=== PATIENT | female | born 1955 | race Caucasian/White ===

== ENCOUNTER 2024-05-14 06:23 | Day surgery (SDC) | payer OTHER ==
[2024-05-13 09:41] VITALS: BMI 30.2
[2024-05-14 09:28] LABS: INR 1.05 (0.83-1.09); PROTHROMBIN TIME (PATIENT) 11.8 SEC (9.7-13.0)
[2024-05-14 09:31] LABS: ACTIVATED PTT 30.7 SECONDS (25.2-36.5)
[2024-05-14] MEDS ORDERED: LIDOCAINE HCL/PF 2% SDV 5ML VIAL ONE (11:56)
[2024-05-14] MEDS ORDERED: PROPOFOL 20 ML ONE ×2 (11:56→13:26)
[2024-05-14] MEDS ORDERED: MIDAZOLAM HCL 2 MG/2 ML SINGLE DOSE VIAL ONE (11:57)
[2024-05-14] MEDS ORDERED: ePHEDrine SULFATE 50 MG/1 ML AMPULE ONE (13:41)
[2024-05-14] MEDS ORDERED: KETOROLAC TROMETHAMINE 30 MG/1 ML VIAL ONE (13:48)
[2024-05-14] MEDS ORDERED: IBUPROFEN 800 MG/8 ML IJ IVPB PRN (13:59)
[2024-05-14] MEDS ORDERED: IBUPROFEN 600 MG TABLET (FP) PO PRN (13:59)
[2024-05-14] MEDS ORDERED: oxyCODONE HCL 5 MG TABLET PO PRN (13:59)
[2024-05-14] MEDS ORDERED: ONDANSETRON 4 MG/2 ML VIAL IVPUSH PRN ×2 (13:59→14:00)
[2024-05-14] MEDS ORDERED: LACTATED RINGERS SOLUTION 1,000 ML IV SCH (14:00)
[2024-05-14] MEDS ORDERED: ELECTROLYTE-148 SOLN 1,000 ML IV SCH (14:00)
[2024-05-14 15:24] VITALS: RESP 18
[2024-05-14 17:13] VITALS: BP 141/67; PULSE 58; TEMP 97.8
== END 2024-05-14 16:10 | disposition home or self-care (01) ==
LOC: JASU-SURG 06:23
PROVIDERS: ATTEND Obstetrics & Gynecology
PROC: 0UB98ZZ Excision of Uterus, Via Natural or Artificial Opening Endoscopic (ICD-10-PCS; principal; 2024-05-14 11:00)
DX: N95.0 Postmenopausal bleeding (principal); N84.0 Polyp of corpus uteri
CPT/HCPCS: 36415; 85610; 85730; 86850; 86900; 86901; 88305-TC; 94760